=== PATIENT | male | born 1995 | race African-American/Black ===

== ENCOUNTER 2022-01-03 23:48 | Emergency (ER) | payer OTHER ==
[~2022-01-03] VITALS: Ht 167.6 cm; Wt 65.8 kg
[2022-01-03 23:54] VITALS: BP 128/65
== END 2022-01-04 00:01 | disposition left against medical advice (07) ==
LOC: EDBD 23:48 → ER 23:59
DX: R07.0 Pain in throat (principal); Z53.21 Procedure and treatment not carried out due to patient leaving prior to being seen by health care provider

== ENCOUNTER 2022-01-04 03:27 | Emergency (ER) | payer OTHER ==
[~2022-01-04] VITALS: Ht 167.6 cm; Wt 67.1 kg
[2022-01-04 03:29] VITALS: BP 117/80
== END 2022-01-04 07:31 | disposition left against medical advice (07) ==
LOC: ER 03:28
DX: F41.8 Other specified anxiety disorders (principal); J45.909 Unspecified asthma, uncomplicated

== ENCOUNTER 2022-01-11 02:52 | Emergency (ER) | payer OTHER ==
[~2022-01-11] VITALS: Ht 167.6 cm; Wt 65.8 kg
[2022-01-11] MEDS ORDERED: IBUPROFEN 800 MG TAB PO ONE (05:00)
[2022-01-11] MEDS ORDERED: METH500T22 PO (05:13)
[2022-01-11] MEDS ORDERED: IBUP800T27 PO (05:13)
[2022-01-11 05:31] VITALS: BP 140/94
== END 2022-01-11 05:38 | disposition home or self-care (01) ==
LOC: ER 02:55
DX: M77.8 Other enthesopathies, not elsewhere classified (principal); J45.909 Unspecified asthma, uncomplicated; Z79.1 Long term (current) use of non-steroidal anti-inflammatories (NSAID); Z79.899 Other long term (current) drug therapy; V19.9XXA Pedal cyclist (driver) (passenger) injured in unspecified traffic accident, initial encounter; Y93.89 Activity, other specified; Y92.89 Other specified places as the place of occurrence of the external cause; Y99.8 Other external cause status
CPT/HCPCS: 73030

== ENCOUNTER 2022-01-17 04:15 | Emergency (ER) | payer OTHER ==
[~2022-01-17] VITALS: Ht 167.6 cm; Wt 68.0 kg
[~2022-01-17 04:15] MED LIST: IBUP800T27 PO; METH500T22 PO
[2022-01-17 04:20] VITALS: BP 128/72
== END 2022-01-17 06:35 | disposition home or self-care (01) ==
LOC: ER 04:15
DX: R20.9 Unspecified disturbances of skin sensation (principal); J45.909 Unspecified asthma, uncomplicated; Z59.00 Homelessness unspecified

== ENCOUNTER 2022-01-19 23:50 | Emergency (ER) | payer OTHER ==
[~2022-01-19] VITALS: Ht 167.6 cm; Wt 70.3 kg
[2022-01-19 23:51] VITALS: BP 140/80
== END 2022-01-20 00:41 | disposition left against medical advice (07) ==
LOC: ER 23:50
DX: M25.512 Pain in left shoulder (principal); Z53.21 Procedure and treatment not carried out due to patient leaving prior to being seen by health care provider; Y04.2XXA Assault by strike against or bumped into by another person, initial encounter; Y93.89 Activity, other specified; Y92.89 Other specified places as the place of occurrence of the external cause; Y99.8 Other external cause status

== ENCOUNTER 2022-02-07 15:35 | Emergency (ER) | payer OTHER ==
[~2022-02-07] VITALS: Ht 167.6 cm; Wt 68.0 kg
[2022-02-07 15:35] VITALS: BP 104/69
== END 2022-02-07 18:21 | disposition left against medical advice (07) ==
LOC: ER 15:35
DX: R11.2 Nausea with vomiting, unspecified (principal); R19.7 Diarrhea, unspecified; R51.9 Headache, unspecified; Z53.21 Procedure and treatment not carried out due to patient leaving prior to being seen by health care provider

== ENCOUNTER 2022-02-14 18:34 | Emergency (ER) | payer OTHER ==
[~2022-02-14] VITALS: Ht 165.1 cm; Wt 63.5 kg
[2022-02-14] MEDS ORDERED: MORPHINE SULFATE 4 MG/ML SYR/VIAL IV ONE (19:00)
[2022-02-14] MEDS ORDERED: SODIUM CHLORIDE 0.9% 1,000 ML IV ONE (19:00)
[2022-02-14 19:28] VITALS: BP 116/63
[2022-02-14 19:55] LABS: Eosinophils # (auto) 0 10 ^3/uL (0-0.8); Monocytes # (auto) 0.6 10 ^3/uL (0-1.3); Red Cell Distribution Width 14.2 % (11.8-14.3)
[2022-02-14 19:57] LABS: Basophils # (auto) 0.1 10 ^3/uL (0-0.2); Basophils % (auto) 1.5 % (0.0-2.0); Eosinophils % (auto) 0.2 % (0.0-7.0); Hematocrit 35.8 % (41.0-53.0); Hemoglobin 11.4 g/dL (13.5-17.5); Lymphocytes # (auto) 0.5 10 ^3/uL (0.4-5.4); Lymphocytes % (auto) 6.2 % (10.0-50.0); Mean Corpuscular Hgb Conc. 31.8 g/dL (32.0-36.0); Mean Corpuscular Volume 75.4 fL (80.0-100.0); Monocytes % (auto) 6.7 % (0.0-12.0); Neutrophils # (auto) 7.4 10 ^3/uL (1.6-8.6); Neutrophils % (auto) 85.4 % (37.0-80.0); Red Blood Cells 4.75 10^6/uL (4.5-5.90); White Blood Cell 8.7 10^3/uL (4.4-10.8)
[2022-02-14 20:18] LABS: INR 1.1 (0.9-1.15); Partial Thromboplastin Time 27.6 sec (23.6-33.0)
[2022-02-14 21:22] LABS: Albumin 3.8 g/dL (3.4-5.0); Anion Gap 3 (5-15); Blood Alcohol < 3.0 mg/dL (0-5); Blood Urea Nitrogen 9 mg/dL (7-18); Calcium 9.2 mg/dL (8.5-10.1); Carbon Dioxide 29 mmol/L (21-32); Chloride 108 mmol/L (98-107); Glucose 92 mg/dL (74-106); Potassium 3.5 mmol/L (3.5-5.1); Sodium 140 mmol/L (136-145)
[2022-02-14 21:25] LABS: Alanine Aminotransferase 27 U/L (16-61); Alkaline Phosphatase 70 U/L (45-117); Aspartate Aminotransferase 24 U/L (15-37); BUN/Creatinine Ratio 7.3; Bilirubin, Total 0.5 mg/dL (0.2-1.0); GFR African American 90 mL/min; GFR Non-African American 74 mL/min; Total Protein 7.1 g/dL (6.4-8.2)
== END 2022-02-14 20:50 | disposition left against medical advice (07) ==
LOC: EDUNIT# 18:34 → ER 18:34 → EDBD 18:34 → ER 20:50
DX: R68.84 Jaw pain (principal); J45.909 Unspecified asthma, uncomplicated; Z79.1 Long term (current) use of non-steroidal anti-inflammatories (NSAID); Z79.899 Other long term (current) drug therapy; V19.9XXA Pedal cyclist (driver) (passenger) injured in unspecified traffic accident, initial encounter; Y93.89 Activity, other specified; Y92.89 Other specified places as the place of occurrence of the external cause; Y99.8 Other external cause status
CPT/HCPCS: 36415; 70450; 70486; 72125; 80053; 80320; 85025; 85610; 85730

== ENCOUNTER → 2022-02-15 | Emergency (ER) | payer OTHER ==
[~2022-02-15] VITALS: Ht 165.1 cm; Wt 68.0 kg
[~2022-02-15] MED LIST changes: +CLINDAMYCIN 900MG IV 50 ML IV ONE; +HYDROmorphone HCL 2 MG/ML VL IV ONE; +SODIUM CHLORIDE 0.9% 1,000 ML IV ONE
[2022-02-15 04:30] VITALS: BP 115/64
== END | disposition short-term general hospital (02) ==
LOC: EDUNIT# 00:20 → ER 00:30 → EDBD 00:30
DX: S02.609A Fracture of mandible, unspecified, initial encounter for closed fracture (principal); J45.909 Unspecified asthma, uncomplicated; V13.4XXA Pedal cycle driver injured in collision with car, pick-up truck or van in traffic accident, initial encounter; Y93.89 Activity, other specified; Y92.89 Other specified places as the place of occurrence of the external cause; Y99.8 Other external cause status
CPT/HCPCS: 96365; 99285; J1170; J3490; J7030

== ENCOUNTER 2022-07-09 23:47 | Emergency (ER) | payer OTHER ==
[~2022-07-09 23:47] MED LIST changes: -CLINDAMYCIN 900MG IV 50 ML IV ONE; -HYDROmorphone HCL 2 MG/ML VL IV ONE; -SODIUM CHLORIDE 0.9% 1,000 ML IV ONE
== END 2022-07-10 01:19 | disposition left against medical advice (07) ==
LOC: ER 23:47
DX: F99 Mental disorder, not otherwise specified (principal); Z53.21 Procedure and treatment not carried out due to patient leaving prior to being seen by health care provider

== ENCOUNTER 2022-08-21 15:16 | Emergency (ER) | payer OTHER | END 2022-08-21 16:10 | disposition left against medical advice (07) | LOC: ER 15:16 | DX: F41.1 Generalized anxiety disorder (principal); J45.909 Unspecified asthma, uncomplicated ==

== ENCOUNTER 2022-09-06 00:48 | Emergency (ER) | payer OTHER ==
[~2022-09-06] VITALS: Ht 165.1 cm; Wt 66.1 kg
[2022-09-06 01:46] VITALS: BP 117/79
== END 2022-09-06 02:27 | disposition left against medical advice (07) ==
LOC: ER 00:52
DX: G43.909 Migraine, unspecified, not intractable, without status migrainosus (principal); Z53.21 Procedure and treatment not carried out due to patient leaving prior to being seen by health care provider

== ENCOUNTER → 2022-10-04 | Emergency (ER) | payer OTHER ==
[~2022-10-04] MED LIST changes: +LORazepam 2MG/ML-1ML VIAL IV ONE; +SODIUM CHLORIDE 0.9% 1,000 ML IV ONE
== END | disposition left against medical advice (07) ==
LOC: ER 14:41 → EDBD 14:41 → EDUNIT# 14:41
DX: G93.41 Metabolic encephalopathy (principal); F31.9 Bipolar disorder, unspecified; R41.82 Altered mental status, unspecified; J45.909 Unspecified asthma, uncomplicated

== ENCOUNTER 2023-07-10 10:58 | Emergency (ER) | payer MEDICAID, OTHER ==
[~2023-07-10 10:58] MED LIST changes: +IBUP-1456 PO; -IBUP800T27 PO; -LORazepam 2MG/ML-1ML VIAL IV ONE; +METH-1181 PO; -METH500T22 PO; -SODIUM CHLORIDE 0.9% 1,000 ML IV ONE
== END 2023-07-10 11:07 | disposition left against medical advice (07) ==
LOC: ER 10:58 → EDUNIT# 10:58 → EDBD 10:58 → ER 11:07
DX: T40.0X1A Poisoning by opium, accidental (unintentional), initial encounter (principal); F41.9 Anxiety disorder, unspecified; J45.909 Unspecified asthma, uncomplicated; Y92.89 Other specified places as the place of occurrence of the external cause

== ENCOUNTER 2023-08-22 23:12 | Emergency (ER) | payer OTHER ==
[~2023-08-22] VITALS: Ht 167.6 cm; Wt 70.3 kg
[2023-08-22 23:35] VITALS: BP 126/73; PULSE 88; RESP 16; O2SAT 98
[2023-08-23] MEDS ORDERED: KETOROLAC TROMETH 60MG/2ML VIAL IM ONE (01:30)
== END 2023-08-23 03:04 | disposition left against medical advice (07) ==
LOC: ER 23:12
DX: M79.641 Pain in right hand (principal); M25.531 Pain in right wrist; Z53.21 Procedure and treatment not carried out due to patient leaving prior to being seen by health care provider